=== PATIENT | male | born 1980 | race Caucasian/White ===

== ENCOUNTER → 2020-10-19 | Day surgery (SDC) | payer OTHER ==
[~2020-10-19] MED LIST: AMPHETAMINE SAL20 MG PO; CYANOCOBAL1000 MCG/1 SC; CYCLOBENZAPRINE10 MG PO; HYDROCODON-ACE1 EAC2 PO; LYRICA100 MG PO; NEXIUM20 MG PO; PERCOCET 5/325 T1 EA PO; PROTONIX40 MG PO; VITAMIN D325 MC6 PO; XANAX0.5 MG PO; ZOFRAN ODT 4 MG4 MG PO
[2020-10-19 07:28] LABS: HEMOGLOBIN 14.3 gm/dl (14.0-17.5); RED BLOOD COUNT 4.23 M/UL (4.20-5.50); WHITE BLOOD COUNT 5.6 K/UL (4.5-11.0)
[2020-10-19 08:54] LABS: BUN/CREATININE RATIO 17 (0-10)
== END | disposition home or self-care (01) ==
LOC: OR 06:32
PROVIDERS: Orthopaedic Surgery
DX: S62.231A Other displaced fracture of base of first metacarpal bone, right hand, initial encounter for closed fracture (principal); K21.9 Gastro-esophageal reflux disease without esophagitis; F41.9 Anxiety disorder, unspecified; F17.210 Nicotine dependence, cigarettes, uncomplicated; Z88.0 Allergy status to penicillin; W22.8XXA Striking against or struck by other objects, initial encounter; Y92.009 Unspecified place in unspecified non-institutional (private) residence as the place of occurrence of the external cause
CPT/HCPCS: 36415; 73130; 76000; 80048; 85025; C1713; J0690; J1100; J1170; J2001; J2250; J2270; J2405; J2704; J3010; J7120

== ENCOUNTER 2020-10-20 15:57 | Inpatient (IN) | payer OTHER ==
[~2020-10-20] VITALS: Ht 180.3 cm; Wt 90.3 kg
[~2020-10-20 15:57] MED LIST changes: -AMPHETAMINE SAL20 MG PO; -CYANOCOBAL1000 MCG/1 SC; -CYCLOBENZAPRINE10 MG PO; -VITAMIN D325 MC6 PO
[2020-10-20 20:16] LABS: HEMOGLOBIN 14.7 gm/dl (14.0-17.5); RED BLOOD COUNT 4.22 M/UL (4.20-5.50)
[2020-10-20 20:19] LABS: BUN/CREATININE RATIO 16 (0-10)
[2020-10-20 20:20] LABS: WHITE BLOOD COUNT 8.7 K/UL (4.5-11.0)
[2020-10-21 04:35] LABS: RED BLOOD COUNT 4.01 M/UL (4.20-5.50); WHITE BLOOD COUNT 7.4 K/UL (4.5-11.0)
[2020-10-21 04:58] LABS: BUN/CREATININE RATIO 13 (0-10)
[2020-10-22 04:10] LABS: HEMOGLOBIN 14.1 gm/dl (14.0-17.5); RED BLOOD COUNT 4.01 M/UL (4.20-5.50); WHITE BLOOD COUNT 5.4 K/UL (4.5-11.0)
[2020-10-22 04:32] LABS: BUN/CREATININE RATIO 16 (0-10)
[2020-10-25 04:59] LABS: HEMOGLOBIN 12.5 gm/dl (14.0-17.5); RED BLOOD COUNT 3.64 M/UL (4.20-5.50)
[2020-10-25 05:10] LABS: WHITE BLOOD COUNT 3.8 K/UL (4.5-11.0)
[2020-10-25 05:19] LABS: BUN/CREATININE RATIO 9 (0-10)
[2021-02-21] MEDS ORDERED: AMPHETAMINE SAL20 MG PO (00:18)
[2021-02-21] MEDS ORDERED: CYANOCOBAL1000 MCG/1 SC (00:19)
== END 2020-10-25 14:46 | disposition home or self-care (01) | DRG 440 ==
LOC: ER1 15:57 → CDU 21:34 → M/S 21:34
PROVIDERS: Emergency Medicine; Physician Assistant; ADMIT Internal Medicine
DX: K85.80 Other acute pancreatitis without necrosis or infection (principal); F41.9 Anxiety disorder, unspecified; K21.9 Gastro-esophageal reflux disease without esophagitis; Z82.49 Family history of ischemic heart disease and other diseases of the circulatory system; F17.210 Nicotine dependence, cigarettes, uncomplicated; F10.11 Alcohol abuse, in remission; Z90.49 Acquired absence of other specified parts of digestive tract; K76.0 Fatty (change of) liver, not elsewhere classified; Z20.822 Contact with and (suspected) exposure to COVID-19; R79.89 Other specified abnormal findings of blood chemistry
CPT/HCPCS: 36415; 71045; 80048; 80053; 80061; 81001; 83605; 83690; 84484; 85025; 90471; 93005; 96372; 96374; 96375; 96376; 99285; C9113; J1170; J1650; J2270; J2405; J2550; J7030; Q9967; U0002

== ENCOUNTER 2021-02-21 03:08 | Inpatient (IN) | payer OTHER ==
[~2021-02-21] VITALS: Ht 182.9 cm; Wt 95.3 kg
[~2021-02-21 03:08] MED LIST changes: +AMPHETAMINE SAL20 MG PO; +CYANOCOBAL1000 MCG/1 SC
[2021-02-21 03:35] LABS: HEMOGLOBIN 16.7 gm/dl (14.0-17.5); RED BLOOD COUNT 4.72 M/UL (4.20-5.50); WHITE BLOOD COUNT 9.3 K/UL (4.5-11.0)
[2021-02-21 03:57] LABS: BUN/CREATININE RATIO 18 (0-10)
[2021-02-21] MEDS ORDERED: CYCLOBENZAPRINE10 MG PO (09:00)
[2021-02-21] MEDS ORDERED: LYRICA100 MG PO (09:00)
[2021-02-21] MEDS ORDERED: VITAMIN D325 MC6 PO (09:03)
[2021-02-22 03:31] LABS: HEMOGLOBIN 15.6 gm/dl (14.0-17.5); RED BLOOD COUNT 4.46 M/UL (4.20-5.50); WHITE BLOOD COUNT 11.3 K/UL (4.5-11.0)
[2021-02-22 04:21] LABS: BUN/CREATININE RATIO 16 (0-10)
[2021-02-23 05:56] LABS: HEMOGLOBIN 16.6 gm/dl (14.0-17.5); RED BLOOD COUNT 4.76 M/UL (4.20-5.50); WHITE BLOOD COUNT 8.1 K/UL (4.5-11.0)
[2021-02-23 06:33] LABS: BUN/CREATININE RATIO 14 (0-10)
== END 2021-02-23 13:37 | disposition home or self-care (01) | DRG 440 ==
LOC: ER1 03:08 → M/S 05:09 → CDU 05:09 → M/S 23:08
PROVIDERS: Internal Medicine; Physician Assistant; ADMIT Internal Medicine Infectious Disease
DX: K85.20 Alcohol induced acute pancreatitis without necrosis or infection (principal); K85.80 Other acute pancreatitis without necrosis or infection; F10.10 Alcohol abuse, uncomplicated; Z20.822 Contact with and (suspected) exposure to COVID-19; E87.6 Hypokalemia; K21.9 Gastro-esophageal reflux disease without esophagitis; F41.9 Anxiety disorder, unspecified; F17.210 Nicotine dependence, cigarettes, uncomplicated; G62.9 Polyneuropathy, unspecified; K76.89 Other specified diseases of liver; Z96.698 Presence of other orthopedic joint implants; I10 Essential (primary) hypertension; Z90.3 Acquired absence of stomach [part of]; Z90.49 Acquired absence of other specified parts of digestive tract; Z87.81 Personal history of (healed) traumatic fracture; Z88.1 Allergy status to other antibiotic agents; Z88.0 Allergy status to penicillin; Z82.49 Family history of ischemic heart disease and other diseases of the circulatory system
CPT/HCPCS: 36415; 71045; 80048; 80053; 82550; 82553; 83690; 83874; 84484; 85025; 93005; 96374; 96375; 99285; C9113; G0480; J1170; J1650; J1885; J2270; J2405; J2550; J7030; Q9967; U0002

== ENCOUNTER 2021-04-30 10:54 | Inpatient (IN) | payer OTHER ==
[~2021-04-30] VITALS: Ht 180.3 cm; Wt 99.8 kg
[~2021-04-30 10:54] MED LIST changes: +CYCLOBENZAPRINE10 MG PO; +VITAMIN D325 MC6 PO
[2021-04-30 11:59] LABS: HEMOGLOBIN 16.7 gm/dl (14.0-17.5); RED BLOOD COUNT 4.73 M/UL (4.20-5.50); WHITE BLOOD COUNT 6.2 K/UL (4.5-11.0)
[2021-04-30 12:21] LABS: BUN/CREATININE RATIO 15 (0-10)
[2021-05-01 04:58] LABS: HEMOGLOBIN 13.4 gm/dl (14.0-17.5); RED BLOOD COUNT 3.84 M/UL (4.20-5.50); WHITE BLOOD COUNT 4.5 K/UL (4.5-11.0)
[2021-05-01 05:24] LABS: BUN/CREATININE RATIO 21 (0-10)
[2021-05-02 04:27] LABS: HEMOGLOBIN 12.6 gm/dl (14.0-17.5); RED BLOOD COUNT 3.77 M/UL (4.20-5.50)
[2021-05-02 04:33] LABS: WHITE BLOOD COUNT 3.3 K/UL (4.5-11.0)
[2021-05-02 04:35] LABS: BUN/CREATININE RATIO 15 (0-10)
[2021-05-02 09:14] LABS: HBSAG SCREEN Negative (Negative); HEP A AB, IGM Negative (Negative); HEP B CORE AB, IGM Negative (Negative); HEP C VIRUS AB <0.1 (0.0-0.9)
--- NOTE | 2021-05-03 00:42 | NUR ---
PATIENT STATES THAT HE WILL NOT WEAR TELE MONITOR. EXPLAINED THE NEED FOR TELE MONTIOR PATIENT VERBALIZED UNDERSTANDING AND CONTINUED TO REFUSE TO WEAR TELE. PATIENT IS ALERT AND ORIENTED X4 AT THIS TIME.
[2021-05-03 04:24] LABS: HEMOGLOBIN 12.5 gm/dl (14.0-17.5); RED BLOOD COUNT 3.57 M/UL (4.20-5.50); WHITE BLOOD COUNT 3.1 K/UL (4.5-11.0)
[2021-05-03 04:48] LABS: BUN/CREATININE RATIO 10 (0-10)
== END 2021-05-03 13:50 | disposition home or self-care (01) | DRG 439 ==
LOC: ER1 10:54 → CDU 17:11 → M/S 17:11
PROVIDERS: Internal Medicine; Physician Assistant; ADMIT Internal Medicine
DX: K85.20 Alcohol induced acute pancreatitis without necrosis or infection (principal); D61.818 Other pancytopenia; D50.9 Iron deficiency anemia, unspecified; Z20.822 Contact with and (suspected) exposure to COVID-19; F10.10 Alcohol abuse, uncomplicated; F17.210 Nicotine dependence, cigarettes, uncomplicated; F19.10 Other psychoactive substance abuse, uncomplicated; K21.9 Gastro-esophageal reflux disease without esophagitis; K70.0 Alcoholic fatty liver; D69.6 Thrombocytopenia, unspecified; F41.9 Anxiety disorder, unspecified; D75.89 Other specified diseases of blood and blood-forming organs; Z88.0 Allergy status to penicillin; Z88.1 Allergy status to other antibiotic agents; Z90.49 Acquired absence of other specified parts of digestive tract; Z82.49 Family history of ischemic heart disease and other diseases of the circulatory system
CPT/HCPCS: 36415; 71045; 80053; 80061; 80074; 80307; 82150; 82550; 82553; 83690; 83735; 83874; 84484; 85025; 85610; 93005; 96374; 96375; 96376; 99285; G0378; G0480; J2270; J2405; J7030; Q9967; U0002

== ENCOUNTER 2021-07-02 12:15 | Inpatient (IN) | payer OTHER ==
[~2021-07-02] VITALS: Ht 180.3 cm; Wt 97.1 kg
[2021-07-02 13:05] LABS: HEMOGLOBIN 17.2 gm/dl (14.0-17.5); RED BLOOD COUNT 4.9 M/UL (4.20-5.50); WHITE BLOOD COUNT 12.6 K/UL (4.5-11.0)
[2021-07-02 13:27] LABS: BUN/CREATININE RATIO 19 (0-10)
[2021-07-02] MEDS ORDERED: ASPIRIN EC81 MG PO (18:58)
[2021-07-02] MEDS ORDERED: TYLENOL EXTRA500 MG PO (18:59)
[2021-07-03 08:09] LABS: WHITE BLOOD COUNT 10.1 K/UL (4.5-11.0)
[2021-07-03 08:13] LABS: RED BLOOD COUNT 4.34 M/UL (4.20-5.50)
[2021-07-03 08:35] LABS: BUN/CREATININE RATIO 15 (0-10)
[2021-07-04 06:51] LABS: HEMOGLOBIN 14.6 gm/dl (14.0-17.5); RED BLOOD COUNT 4.17 M/UL (4.20-5.50)
[2021-07-04 07:27] LABS: BUN/CREATININE RATIO 13 (0-10)
[2021-07-04 07:28] LABS: WHITE BLOOD COUNT 6.1 K/UL (4.5-11.0)
[2021-07-04] MEDS ORDERED: PERCOCET 7.5-31 EACH PO (10:40)
[2021-07-04] MEDS ORDERED: DOCUSATE SODIU100 MG PO (10:40)
[2021-07-04] MEDS ORDERED: MIRALAX17 GM PO (10:44)
[2021-07-04] MEDS ORDERED: SENNA8.6 MG PO (10:44)
[2021-07-04] MEDS ORDERED: NICOTINE PATCH1 EAC1 TD (11:00)
== END 2021-07-04 11:30 | disposition home or self-care (01) | DRG 440 ==
LOC: ER1 12:15 → CDU 18:13 → MED SURG 4 18:13
PROVIDERS: Physician Assistant; Student in an Organized Health Care Education/Training Program; ADMIT Internal Medicine
DX: K85.20 Alcohol induced acute pancreatitis without necrosis or infection (principal); K86.1 Other chronic pancreatitis; Z20.822 Contact with and (suspected) exposure to COVID-19; Z96.698 Presence of other orthopedic joint implants; F17.210 Nicotine dependence, cigarettes, uncomplicated; F19.10 Other psychoactive substance abuse, uncomplicated; F10.10 Alcohol abuse, uncomplicated; E86.0 Dehydration; Z90.49 Acquired absence of other specified parts of digestive tract; Z82.49 Family history of ischemic heart disease and other diseases of the circulatory system
CPT/HCPCS: 36415; 71045; 80053; 80061; 80307; 81001; 82550; 82553; 83690; 83735; 83874; 84100; 84484; 85025; 85027; 93005; 96372; 96374; 96375; 99285; G0480; J0780; J1170; J1630; J1650; J2060; J2270; J2405; J2550; J3411; J3475; J7030; Q9967; U0002

== ENCOUNTER → 2021-12-25 | Outpatient (CLI) | payer OTHER ==
[~2021-12-25] MED LIST changes: +ASPIRIN EC81 MG PO; +DOCUSATE SODIU100 MG PO; +MIRALAX17 GM PO; +NICOTINE PATCH1 EAC1 TD; +PERCOCET 7.5-31 EACH PO; +SENNA8.6 MG PO; +TYLENOL EXTRA500 MG PO
== END ==
LOC: KOH-I 13:00
DX: M54.2 Cervicalgia (principal); R51.9 Headache, unspecified
CPT/HCPCS: 70551; 72141